=== PATIENT | female | born 1945 | race Caucasian/White ===

== ENCOUNTER → 2020-02-03 14:16 | Outpatient (CLI) | payer MEDICARE, SELFPAY ==
--- NOTE | ~2020-02-03 | XR_ITS ---
EXAMINATION: XR hand RT min 3V INDICATION: Right hand pain TECHNIQUE: Three views of the right hand are obtained. COMPARISON: None available FINDINGS: There is no fracture. Cuvn-ys-trcugtcs polyarticular osteoarthritis is noted. Bone alignmen t is maintained. There our changes of prior ulnar styloid avulsion. Soft tissues are unremarkable. IMPRESSION: 1. Polyarticular osteoarthritis without acute osseous abnormality. Reviewed, dictated and finalized at location B.
== END ==
PROVIDERS: PCP Family Medicine; Visit Provider Physician Assistant
DX: M79.641 Pain in right hand (principal); M19.041 Primary osteoarthritis, right hand
CPT/HCPCS: 73130

== ENCOUNTER 2020-05-14 06:44 | Outpatient (NON) | payer MEDICARE, SELFPAY ==
[2020-05-15 21:18] LABS: SARS-CoV-2 RNA PCR Positive
== END 2020-05-14 06:45 ==
PROVIDERS: Physician Assistant; PCP Family Medicine; Visit Provider Physician Assistant
DX: U07.1 COVID-19 (principal)
CPT/HCPCS: 87635; C9803; U0003

== ENCOUNTER 2020-09-23 15:29 | Outpatient (CLI) | payer MEDICARE, SELFPAY | END 2020-09-23 15:30 | disposition home or self-care (01) | LOC: ANHCOVIDVC 15:29 | DX: Z23 Encounter for immunization (principal) | CPT/HCPCS: 0001A; 91300 ==

== ENCOUNTER → 2021-01-04 08:21 | Outpatient (CLI) | payer MEDICARE, SELFPAY ==
--- NOTE | ~2021-01-04 | XR_ITS ---
EXAMINATION: XR lumbar spine 2-3V DATE: 01/04/2021 08:54 INDICATION: Low back pain. TECHNIQUE: 3 views of lumbar spine were obtained. COMPARISON: CT abdomen and pelvis 05/15/2017 FINDINGS: There is 13 degrees dextroscoliosis of thoracolumbar spine. Again seen is a chronic mykel diane fracture of L1. There is 3 mm retrolisthesis of L2 on L3. There is severely decreased disc heigh t at L2-L3 and L4-L5. There are endplate osteophytes at all levels. There is multilevel severe facet joint osteoarthritis. Surgical clips in the right upper quadrant are likely from cholecystectomy. IMPRESSION: 1. Severe lumbar spondylosis. 2. Thoracolumbar dextroscoliosis. Reviewed, dictated and finalized at location A.
== END ==
PROVIDERS: PCP Family Medicine; Visit Provider Family Medicine
DX: M47.816 Spondylosis without myelopathy or radiculopathy, lumbar region (principal); M41.9 Scoliosis, unspecified
CPT/HCPCS: 72100

== ENCOUNTER → 2021-07-14 11:27 | Outpatient (CLI) | payer MEDICARE, SELFPAY ==
[2021-07-14 22:12] LABS: SARS-CoV-2 RNA PCR Negative
[2021-07-15 12:44] LABS: Influenza Control Positive
== END ==
PROVIDERS: PCP Family Medicine; Visit Provider Physician Assistant
DX: R68.89 Other general symptoms and signs (principal); Z20.822 Contact with and (suspected) exposure to COVID-19
CPT/HCPCS: 87804; C9803; U0003; U0005

== ENCOUNTER 2021-10-27 16:36 | Outpatient (CLI) | payer OTHER, MEDICARE, SELFPAY ==
--- NOTE | ~2021-10-27 | MR_ITS ---
EXAMINATION: MR lumbar spine wo con DATE: 10/27/2021 17:16 INDICATION: Low back pain. TECHNIQUE: Magnetic resonance imaging (MRI) of the lumbar spine was performed without intravenous con trast. Sequences included sagittal T2-weighted FSE, sagittal T2-weighted FS FSE, sagittal T1-weighted FSE, and axial T2-weighted FSE. COMPARISON: Lumbar spine radiograph 01/04/2021 FINDINGS: There is 6 degrees dextrocurvature of thoracolumbar spine. There are chronic compression fr actures of T11 and L1 with 1/5 and 2/5 loss of height, respectively. There is a chronic burst fractur e of L4 with 2/5 loss of height. There is mildly decreased disc height at L1-L2, severely decreased d isc height at L2-L3, moderately decreased disc height at L3-L4, and severely decreased disc height at L4-L5 with endplate remodeling. There is ligamentum flavum hypertrophy at the disc levels from L1-L2 through L4-L5. The distal spinal cord signal intensity is normal. The conus medullaris is at L1. The following disc levels are specifically discussed: L1-L2: The disc is bulging. There is severe bilateral facet joint osteoarthritis. There is mild bilat eral neural foraminal stenosis. There is mild central canal stenosis. L2-L3: The disc is bulging and has an annular fissure. There is severe bilateral facet joint osteoart hritis. There is moderate bilateral neural foraminal stenosis. There is mild central canal stenosis. L3-L4: The disc is bulging and has an annular fissure. There is severe bilateral facet joint osteoart hritis. There is moderate right and mild left neural foraminal stenosis. There is mild central canal stenosis. L4-L5: The disc is bulging and has an annular fissure. There is severe bilateral facet joint osteoart hritis. There is moderate right and mild left neural foraminal stenosis. There is mild central canal stenosis. L5-S1: The disc is bulging. There is severe bilateral facet joint osteoarthritis. There is mild bilat eral neural foraminal stenosis. There is mild central canal stenosis. IMPRESSION: 1. Severe lumbar spondylosis. Reviewed, dictated and finalized at location A.
== END 2021-10-27 16:37 | disposition home or self-care (01) ==
LOC: ANHIMG 16:41
PROVIDERS: PCP Family Medicine; Visit Provider Family Medicine
DX: M47.896 Other spondylosis, lumbar region (principal)
CPT/HCPCS: 72148

== ENCOUNTER 2022-07-03 14:02 | Outpatient (CLI) | payer MEDICARE, SELFPAY ==
--- NOTE | ~2022-07-03 | US_ITS ---
EXAMINATION: US soft tissue lower back DATE: 07/03/2022 14:40 INDICATION: subcutaneous mass . TECHNIQUE: Grayscale and Doppler ultrasound images of the lower back soft tissues were obtained. COMPARISON: None. FINDINGS: Sonographic interrogation of the area of concern in the mid lower back reveals a slightly i rregular, elongated slightly heterogeneous, avascular, thick-walled fluid collection in the deep subc utaneous tissues, with surrounding edema, no increased surrounding vascularity, measuring 4.5 x 0.7 x 2.8 cm. IMPRESSION: 4.5 cm deep subcutaneous fluid collection in the area of clinical concern. Given the history of recen t trauma, hematoma is favored. Recommend short-term sonographic follow-up in 2-3 months to demonstrat e healing/resolution. Reviewed, dictated and finalized at location K. POURER IMPRESSION: 4.5 cm deep subcutaneous fluid collection in the area of clinical concern. Give n the history of recent trauma, hematoma is favored. Recommend short-term sonog raphic follow-up in 2-3 months to demonstrate healing/resolution.
== END 2022-07-03 14:03 | disposition home or self-care (01) ==
LOC: ANHIMG 14:02
PROVIDERS: PCP Family Medicine; Visit Provider Family Medicine
DX: R22.2 Localized swelling, mass and lump, trunk (principal)
CPT/HCPCS: 76705

== ENCOUNTER → 2022-09-15 08:40 | Outpatient (CLI) | payer MEDICARE, SELFPAY ==
--- NOTE | ~2022-09-15 | US_ITS ---
EXAMINATION: US soft tissue lower back DATE: 09/15/2022 09:05 INDICATION: Localized swelling, mass or lump at the low back. TECHNIQUE: Multiple grayscale and Doppler ultrasound images of the region of concern at the low back to the left of the spine were obtained. COMPARISON: Ultrasound study dated 07/03/2022 FINDINGS: Normal appearance to the subcutaneous tissues at the region of concern. A prior lenticular loculated fluid collection in the deep subcutaneous tissues is no longer visualized which likely represent a no w resolved post traumatic hematoma. No abnormal masses or fluid collections identified in the current study. IMPRESSION: 1. Interval resolution of a prior likely subcutaneous fluid collection which likely representing a he matoma. No abnormal masses or fluid collections identified at the region of concern on the current st udy. Reviewed, dictated and finalized at location A. ER SUPPORT TECHNICIAN IMPRESSION: 1. Interval resolution of a prior likely subcutaneous fluid collection which li kostas representing a hematoma. No abnormal masses or fluid collections identifie d at the region of concern on the current study.
== END ==
PROVIDERS: PCP Family Medicine; Visit Provider Physician Assistant
DX: R22.2 Localized swelling, mass and lump, trunk (principal)
CPT/HCPCS: 76705

== ENCOUNTER → 2022-09-19 16:04 | Outpatient (CLI) | payer MEDICARE, SELFPAY ==
--- NOTE | ~2022-09-19 | XR_ITS ---
EXAM: XR tibia fibula RT 2V DATE: 09/19/2022 16:26 HISTORY: M79.661 - Pain in right lower leg . COMPARISON: X-ray knee 07/26/2016, images only. FINDINGS: Normal mineralization. No fracture or dislocation. No lytic or blastic lesion. Degenerativ e changes in the right knee, right ankle, and right midfoot. Achilles and plantar enthesopathy. No er osion or periosteal change. Soft tissues within normal limits. IMPRESSION: Moderate osteoarthritic change in the right knee and right midfoot. Mild osteoarthritis i n the right ankle. Achilles and plantar enthesopathy. Reviewed, dictated and finalized at location K. IMPRESSION: Moderate osteoarthritic change in the right knee and right midfoot. Mild osteoarthritis in the right ankle. Achilles and plantar enthesopathy.
== END ==
PROVIDERS: PCP Family Medicine; Visit Provider Physician Assistant
DX: M17.11 Unilateral primary osteoarthritis, right knee (principal); M19.071 Primary osteoarthritis, right ankle and foot
CPT/HCPCS: 73590

== ENCOUNTER 2022-10-11 12:24 | Outpatient (CLI) | payer MEDICARE, SELFPAY ==
--- NOTE | ~2022-10-11 | US_ITS ---
EXAMINATION: US soft tissue LE RT DATE: 10/11/2022 12:58 INDICATION: Right lower extremity subcutaneous mass. TECHNIQUE: Multiple grayscale and Doppler ultrasound images of the right lower limb were obtained. COMPARISON: Right tibia and fibula radiographs 09/19/2022 FINDINGS: In the right lateral calf distally, there is a 1.4 x 1.3 x 1.0 cm hypoechoic subcutaneous m ass. IMPRESSION: 1. 1.4 cm subcutaneous mass in the distal right lateral calf. The differential diagnosis is broad and includes hematoma, benign masses such as peripheral nerve sheath tumor or hemangioma, and less likel y malignancy. Consider ultrasound-guided core needle biopsy. Reviewed, dictated and finalized at location A. IMPRESSION: 1. 1.4 cm subcutaneous mass in the distal right lateral calf. The differential diagnosis is broad and includes hematoma, benign masses such as peripheral nerv e sheath tumor or hemangioma, and less likely malignancy. Consider ultrasound-g uided core needle biopsy.
== END 2022-10-11 12:25 | disposition home or self-care (01) ==
PROVIDERS: PCP Family Medicine; Visit Provider Family Medicine
DX: R22.41 Localized swelling, mass and lump, right lower limb (principal)
CPT/HCPCS: 76882

== ENCOUNTER → 2023-04-30 08:53 | Outpatient (CLI) | payer MEDICARE, SELFPAY ==
--- NOTE | ~2023-04-30 | XR_ITS ---
. XR chest 2V 04/30/2023 09:11 Indication: Shortness of breath Procedure: 2 view chest Comparison: 08/08/2017 Findings: Cardiomegaly with interstitial edema. No significant effusion. No pneumothorax. Impression: 1: Cardiomegaly with interstitial edema. Reviewed, dictated and finalized at location L. Impression: 1: Cardiomegaly with interstitial edema.
== END ==
PROVIDERS: PCP Physician Assistant; Visit Provider Physician Assistant
DX: I51.7 Cardiomegaly (principal); R60.9 Edema, unspecified; R06.02 Shortness of breath
CPT/HCPCS: 71046

== ENCOUNTER 2023-04-30 09:21 | Outpatient (CLI) | payer MEDICARE, SELFPAY ==
[2023-04-30 10:09] LABS: Influenza A QL RT-PCR Negative (Negative); Influenza B QL RT-PCR Negative (Negative); SARS-CoV-2 RNA PCR Negative (Negative)
== END 2023-04-30 09:22 | disposition home or self-care (01) ==
PROVIDERS: PCP Physician Assistant; Visit Provider Physician Assistant
DX: R05.9 Cough, unspecified (principal); R50.9 Fever, unspecified; Z20.822 Contact with and (suspected) exposure to COVID-19
CPT/HCPCS: 87636

== ENCOUNTER 2024-02-15 09:25 | Emergency (ER) | payer MEDICARE, SELFPAY ==
--- NOTE | ~2024-02-15 | XR_ITS ---
EXAMINATION: XR foot LT 2V DATE: 02/15/2024 10:08 INDICATION: Left foot swelling. TECHNIQUE: 2 views of left foot were obtained. COMPARISON: None. FINDINGS: Alignment is normal. No fracture. There is moderate osteoarthritis of first metatarsophalan geal joint and mild osteoarthritis of some of the interphalangeal joints. There is severe midfoot ost eoarthritis. There are enthesophytes at the posterior and plantar aspects of calcaneal tuberosity. IMPRESSION: 1. Polyarticular osteoarthritis. Reviewed, dictated and finalized at location A.
[2024-02-15 09:42] VITALS: BP 156/67; PULSE 55; RESP 16; TEMP 36.7; O2SAT 97
--- NOTE | 2024-02-15 09:55 | ED.EXTPRO ---
HPI - Extremity Problem General Chief complaint: Extremity Problem,Nontraumatic Stated complaint: left foot swelling Time Seen by Provider: 02/15/24 09:45 Source: patient Mode of arrival: ambulatory Limitations: no limitations History of Present Illness HPI Narrative: Tanesha is a 78-year-old female patient presenting to the clinic today with complaints of left foot swelling/discomfort. She denies any known injury. Has history of chronic lymphedema and congestive heart failure. States that her foot seems to be a little more swollen than normal. She denies any chest pain or shortness of breath. States that her swelling does go down when she keeps her legs elevated. Related Data Home Medications Medication Instructions Recorded Confirmed amiodarone 200 mg tablet 200 mg PO DAILY 12/12/23 02/15/24 furosemide 20 mg tablet 40 mg PO DAILY 12/12/23 02/15/24 albuterol sulfate 90 mcg/actuation See Rx Instructions .Route .COMPLEX 02/04/24 02/15/24 aerosol inhaler Allergies Allergy/AdvReac Type Severity Reaction Status Date / Time acetaminophen Allergy Mild Unknown Verified 02/15/24 09:38 celecoxib Allergy Mild RASH Verified 02/15/24 09:38 clemastine Allergy Mild Unknown Verified 02/15/24 09:38 codeine Allergy Mild RESP Verified 02/15/24 09:38 DISTRESS diphenhydramine Allergy Mild Unknown Verified 02/15/24 09:38 menthol Allergy Mild Unknown Verified 02/15/24 09:38 meperidine Allergy Mild RASH Verified 02/15/24 09:38 Penicillins Allergy Mild RASH Verified 02/15/24 09:38 phenylpropanolamine Allergy Mild Unknown Verified 02/15/24 09:38 propoxyphene Allergy Mild Unknown Verified 02/15/24 09:38 pseudoephedrine Allergy Mild Unknown Verified 02/15/24 09:38 Sulfa (Sulfonamide Allergy Mild RASH Verified 02/15/24 09:38 Antibiotics) tripelennamine Allergy Mild Unknown Verified 02/15/24 09:38 triprolidine Allergy Mild Unknown Verified 02/15/24 09:38 Contrast Media Allergy Mild Unknown Uncoded 02/15/24 09:38 Review of Systems Review of Systems: Pertinent positives per HPI. Patient denies any fever, chills, rash, headache, visual changes, dizziness, cough, runny nose, sore throat, shortness of breath, chest pain, palpitations, nausea, vomiting, diarrhea, constipation, abdominal pain, or any urinary issues. [facility] Past Medical History Medical History Afib CHF (congestive heart failure) Chronic acquired lymphedema IFG (impaired fasting glucose) Lumbar spondylosis Surgical History Surgical History History of total knee replacement Hx of cyst of breast Status post hysterectomy with oophorectomy Family History Family History Father Family history of Alzheimer's disease Other Diabetes mellitus Family history of arthritis Family history of malignant neoplasm Social History Social History Smoking status: Never smoker Second hand tobacco smoke exposure: No Alcohol intake: never Substance use: never Substance use type: does not use Living arrangements: with family Occupation/Education: occupation Gender identity (if verbalized by the patient): Female Sexual Orientation (if Verbalized by the Patient): Straight or Heterosexual Spiritual care concerns: No Comments At the time of my signature, I reviewed and agree with the nursing past medical, surgical, social, and family history. There is no relevant family history pertinent to the patient complaint. Exam Narrative: General: Well-developed, morbidly obese, in no apparent distress Head: Normocephalic, atraumatic. Cardio: Regular rate and rhythm, s1 and s2 normal, no murmur appreciated. Resp: Clear to auscultation bilaterally, no rhonchi, rales, wheezing or rubs. Musculoskeletal: No deformity, non-pitting kody
== END 2024-02-15 10:20 | disposition home or self-care (01) ==
PROVIDERS: Emergency Provider Nurse Practitioner Family; PCP Family Medicine
DX: R22.42 Localized swelling, mass and lump, left lower limb (principal); M19.072 Primary osteoarthritis, left ankle and foot; I89.0 Lymphedema, not elsewhere classified; I48.91 Unspecified atrial fibrillation; I50.9 Heart failure, unspecified; R73.01 Impaired fasting glucose; M47.816 Spondylosis without myelopathy or radiculopathy, lumbar region
CPT/HCPCS: 73620; 99213; G0463

== ENCOUNTER 2024-08-20 12:22 | Emergency (ER) | payer MEDICARE, SELFPAY ==
--- NOTE | ~2024-08-20 | XR_ITS ---
EXAMINATION: XR chest 2V DATE: 08/20/2024 13:00 INDICATION: Cough and congestion. TECHNIQUE: Frontal and lateral views of the chest were obtained. COMPARISON: Chest 2 views 04/30/2023, CT abdomen and pelvis 05/15/2019 FINDINGS: There is mild atelectasis in right lower lung zone. No pleural effusion or pneumothorax. Ca rdiomegaly is noted. There is a left chest wall pacer with leads in the right atrium and right ventri amber. Calcified right hilar and mediastinal lymph nodes are consistent with old granulomatous disease. IMPRESSION: 1. Mild atelectasis in right lower lung zone. 2. Cardiomegaly. Reviewed, dictated and finalized at location A. 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
[2024-08-20 12:39] VITALS: BP 148/86; PULSE 76; RESP 15; TEMP 36.2; O2SAT 98
--- NOTE | 2024-08-20 12:48 | ED.URI ---
HPI - URI/Sore Throat General Chief Complaint: Upper Respiratory Infection Stated Complaint: SOB,wheezing asthmatic Time Seen by Provider: 08/20/24 13:14 Source: patient, RN notes reviewed and old records reviewed Mode of arrival: ambulatory Limitations: no limitations History of Present Illness HPI Narrative: The patient with asthma presents with complaints of increased wheezing and productive cough. She reports symptoms have been present for about 4 days, worsening. She has been using her inhalers as prescribed. She is not in any distress, speaking in complete sentences, no wheezing or stridor. She does report wheezing is worse at night. States that cough is been productive at times Related Data Home Medications ?Medication ?Instructions ?Recorded ?Confirmed ?Last Taken ?Type sotalol 80 mg tablet 80 mg PO DAILY 04/07/24 08/20/24 Unknown History Allergies Allergy/AdvReac Type Severity Reaction Status Date / Time acetaminophen Allergy Mild Unknown Verified 08/20/24 12:40 celecoxib Allergy Mild RASH Verified 08/20/24 12:40 clemastine Allergy Mild Unknown Verified 08/20/24 12:40 codeine Allergy Mild RESP Verified 08/20/24 12:40 DISTRESS diphenhydramine Allergy Mild Unknown Verified 08/20/24 12:40 menthol Allergy Mild Unknown Verified 08/20/24 12:40 meperidine Allergy Mild RASH Verified 08/20/24 12:40 Penicillins Allergy Mild RASH Verified 08/20/24 12:40 phenylpropanolamine Allergy Mild Unknown Verified 08/20/24 12:40 propoxyphene Allergy Mild Unknown Verified 08/20/24 12:40 pseudoephedrine Allergy Mild Unknown Verified 08/20/24 12:40 Sulfa (Sulfonamide Allergy Mild RASH Verified 08/20/24 12:40 Antibiotics) tripelennamine Allergy Mild Unknown Verified 08/20/24 12:40 triprolidine Allergy Mild Unknown Verified 08/20/24 12:40 Contrast Media Allergy Mild Unknown Uncoded 08/20/24 12:40 Review of Systems Review of Systems: All systems reviewed & are unremarkable except as noted in HPI and below Constitutional: Constitutional: Reports no additional constitutional complaints ENT: Reports system reviewed and no additional complaints, except as documented Cardiovascular: Cardiovascular: Reports no additional cardiovascular complaints Respiratory: Respiratory: Reports no additional respiratory complaints, Reports change in phlegm color, Reports chest congestion, Reports cough, Reports dyspnea and Reports wheezing Gastrointestinal: Gastrointestinal: Reports no additional gastrointestinal complaints PMFSH Past Medical History Medical History CHF (congestive heart failure) Lumbar spondylosis Afib IFG (impaired fasting glucose) Chronic acquired lymphedema Surgical History Surgical History Hx of cyst of breast Status post hysterectomy with oophorectomy History of total knee replacement Family History Family History Father Family history of Alzheimer's disease Other Diabetes mellitus Family history of arthritis Family history of malignant neoplasm Social History Social History Smoking status: Never smoker Second hand tobacco smoke exposure: No Alcohol intake: never Substance use: never Substance use type: does not use Living arrangements: with family Occupation/Education: occupation Gender identity (if verbalized by the patient): Female Sexual Orientation (if Verbalized by the Patient): Straight or Heterosexual Spiritual care concerns: No Comments At the time of my signature, I reviewed and agree with the nursing past medical, surgical, social, and family history. There is no relevant family history pertinent to the patient complaint. Exam Const: General: cooperative, no acute distress, alert and awake Orientation/consciousness: oriented to person, oriented to place and oriented to time HENMT: Head: normal to inspection Resp: Effort & Inspection: normal respiratory effort and able to speak in complete sentences Auscultation: clear to auscultation bilaterally, no crackles, no rales, no rhonchi and no wheezes Cardio: Palpation: normal PMI Rate: regular rate Rhythm: regular rhythm Heart sounds: S1 normal heart sound present and S2 normal heart sound present Neuro: General: oriented to person, oriented to place and oriented to time Cranial nerves: Yes CN's II-XII intact bilaterally Psych: Appearance: grossly normal Thought process: Normal thought process present Insight: Good insight present (Psych) Judgement: Good judgement present (Psych) Course Course Level of Care: Express Care Visit Vital Signs Vital signs: Vital Signs Temperature 97.1 F L 08/20/24 12:39 Pulse Rate 76 08/20/24 12:39 Respiratory Rate 15 08/20/24 12:39 Blood Pressure 148/86 H 08/20/24 12:39 Pulse Oximetry 98 08/20/24 12:39 Oxygen Delivery Room Air 08/20/24 12:39 Temperature 97.1 F L 08/20/24 12:39 Pulse Rate 76 08/20/24 12:39 Respiratory Rate 15 08/20/24 12:39 Blood Pressure 148/86 H 08/20/24 12:39 Pulse Oximetry 98 08/20/24 12:39 Oxygen Delivery Room Air 08/20/24 12:39 Reviewed MDM - URI/Sore Throat MDM Narrative Medical decision making narrative: Reassuring physical exam, normal breath sounds. Chest x-ray with mild atelectasis to right base. Otherwise no acute findings. Given age and comorbidities, start azithromycin, prednisone. She has plenty of albuterol at home. Discharge instructions reviewed with patient, as well as provided in writing per nursing staff. The instructions also include specific and strict return/GO TO THE ER as well as f/u information. All questions have been answered, and the patient deny any further questions with discharge and discharge plan. Some parts of this dictation were generated by voice recognition software and may contain typographical and/or grammatical inaccuracies. Differential Diagnosis Differential diagnosis: Likely upper respiratory infection, otitis media and viral infection Medical Records Attestation: I reviewed the patient's medical records. Lab Data Attestation: I reviewed the patient's lab results. Imaging Data Attestation: I personally reviewed and interpreted this imaging study as follows: My impression: No acute finding Radiologist's impression: [address] [place] [address] XRay Report Signed Patient: Tanesha Dumont : 1945 MR#: [id number] Age: 78 Acct:[id number] Loc: [facility] ADM Date: 08/20/24Attending Dr: Ordering Physician: Mariana Martinez FNP Date of Service: 08/20/24 Procedure(s): XR chest 2V Accession Number(s): [id number] cc: Mariana Martinez FNP; James Mckay MD~ EXAMINATION: XR chest 2V DATE: 08/20/2024 13:00 INDICATION: Cough and congestion. TECHNIQUE: Frontal and lateral views of the chest were obtained. COMPARISON: Chest 2 views 04/30/2023, CT abdomen and pelvis 05/15/2019 FINDINGS: There is mild atelectasis in right lower lung zone. No pleural effusion or pneumothorax. Cardiomegaly is noted. There is a left chest wall pacer with leads in the right atrium and right ventricle. Calcified right hilar and mediastinal lymph nodes are consistent with old granulomatous disease. IMPRESSION: 1. Mild atelectasis in right lower lung zone. 2. Cardiomegaly. Reviewed, dictated and finalized at location A. SOLUTIONS ARCHITECT Please be advised this is a medical document. It is intended for [id number] communication. It is written in medical language and may contain unfamiliar abbreviations or verbiage. Medical documents are intended to carry relevant information, facts as evident, and the clinical opinion of the practitioner at the time of the encounter. This report may have been done utilizing a voice recognition system. Attempts have been made to correct errors. However, there may be uncorrected grammatical, spelling, and recognition errors present. The file time of this note does not necessarily represent the time of service. Dictated By: Lester Snowden MD 08/20/24 1303 Signed By: <Electronically signed by Lester Snowden MD in OV> 08/20/24 1305 Discharge Plan Discharge Clinical Impression: Asthma Qualifiers: Asthma severity: unspecified severity Asthma persistence: unspecified Asthma complication type: unspecified Qualified Code(s): J45.909 - Unspecified asthma, uncomplicated Patient Disposition: Home, Self-Care Condition: Stable Instructions: Antibiotic Form Additional Instructions: Take medications as prescribed. Follow-up with primary care provider. Emergency department for new or worse symptoms Patient Language: Yoruba Prescriptions: New azithromycin 250 mg tablet See Rx Instructions .ROUTE .COMPLEX Qty: 6 0RF Rx Instructions: For 250 mg dose pack: take 500 mg today (day 1), then 250 mg for 4 days (days 2-5) prednisone 50 mg tablet 50 mg PO DAILY Qty: 5 0RF No Action atorvastatin 10 mg tablet 10 mg PO DAILY Qty: 90 3RF Jardiance 10 mg tablet 10 mg PO DAILY Qty: 30 0RF potassium chloride 20 mEq tablet extended release 40 meq PO BID Qty: 120 0RF Xarelto 15 mg tablet 15 mg PO DAILY Qty: 30 0RF Rx Instructions: must administer with evening meal gabapentin 300 mg capsule 300 mg PO BID Qty: 180 3RF allopurinol 100 mg tablet 100 mg PO DAILY Qty: 90 1RF sotalol 80 mg tablet 80 mg PO DAILY levothyroxine 100 mcg tablet 100 mcg PO DAILY Qty: 90 3RF albuterol sulfate 90 mcg/actuation HFA aerosol inhaler 1 inh inhalation Q4H PRN (Reason: shortness of breath or wheezing) Qty: 8.5 2RF tramadol 50 mg tablet 50 mg PO Q8H PRN (Reason: pain) Qty: 45 0RF furosemide 40 mg tablet 40 mg PO QAM Qty: 90 2RF Follow-up/Referrals: James Mckay MD [Primary Care Provider] - Time of Disposition: 13:23
== END 2024-08-20 13:32 | disposition home or self-care (01) ==
PROVIDERS: Emergency Provider Nurse Practitioner Family; PCP Family Medicine
DX: J45.909 Unspecified asthma, uncomplicated (principal); I48.91 Unspecified atrial fibrillation; I50.9 Heart failure, unspecified; M47.816 Spondylosis without myelopathy or radiculopathy, lumbar region
CPT/HCPCS: 71046; 99213; G0463